=== PATIENT | female | born 1995 | race Caucasian/White ===

== ENCOUNTER 2017-04-05 13:44 | Emergency (ER) | payer BC ==
[~2017-04-05] VITALS: Ht 162.6 cm; Wt 103.0 kg
[2017-04-05 13:48] VITALS: Ht 162.6 cm; Wt 103.0 kg
[2017-04-05] MEDS ORDERED: MAGN296S40 PO (14:22)
[2017-04-05] MEDS ORDERED: POLY17PO6 PO (14:23)
--- NOTE | 2017-04-05 14:32 | ERD ---
ER Documentation Chief Complaint Date/Time DATE: 04/05/17 TIME: 14:26 Chief Complaint pt bib family with c/o constipation, she has tried many things HPI Patient is a 21-year-old female with past medical history who presents to the emergency department for constipation. Patient states she has been unable to pass a good bowel movement for the last week. She reports thin caliber stools. Patient states that she was seen in outside hospital proximally 1 week ago and at that time given numerous prescriptions. Patient reports getting a prescription for Colace as well as mag citrate. Patient reports drinking 3 glasses of water per day. She does report straining. Patient does report passing gas. Patient denies any fevers, chills, nausea, vomiting, vaginal bleeding, rectal bleeding, rectal pain. Last menstrual period month and a half ago, irregular periods noted. She is currently being treated for urinary tract infection is taking Keflex. Patient denies taking any opioids. Patient brings in all medication she has tried for constipation. Upon reviewing the patient's prescriptions with her, it was noted that patient has only been taking 10 cc of mag citrate per day. ROS All systems reviewed and are negative except as per history of present illness. Medications Home Meds Active Scripts Polyethylene Glycol* (Miralax*) 17 Gm Powd.pack, 17 GM PO DAILY, #7 Prov:ASHOK LEIVA PA-C 04/05/17 Magnesium Citrate* (Magnesium Citrate*) 296 Ml Solution, 296 ML PO ONCE, #1 BOTTLE Prov:ASHOK LEIVA PA-C 04/05/17 Allergies Allergies: Coded Allergies: No Known Allergy (Unverified , 04/05/17) Physical Exam Vitals Vital Signs Date Time Temp Pulse Resp B/P Pulse Ox O2 Delivery O2 Flow Rate FiO2 04/05/17 13:48 98.3 68 18 132/78 98 Physical Exam GENERAL: Well-developed, well-nourished female. Appears in no acute distress. HEAD: Normocephalic, atraumatic. EYES: Pupils are equally reactive bilaterally. EOMs grossly intact. No conjunctival erythema. ENT: Moist mucous membranes. No uvula deviation. No kissing tonsils. NECK: Supple. No meningismus. Normal range of motion of the neck. LUNG: Clear to auscultation bilaterally. No rhonchi, wheezing, rales or coarse breath sounds. HEART: Regular rate and rhythm. No murmurs, rubs or gallops. ABDOMEN: Soft and nondistended. Slightly tender in all 4 quadrants.. Positive bowel sounds in all four quadrants. No rebound tenderness, no guarding. (-) McBurney's point tenderness. No CVA tenderness. BACK: No midline tenderness. EXTREMITIES: Equal pulses bilaterally. No peripheral clubbing, cyanosis or edema. No unilateral leg swelling. NEUROLOGIC: Alert and oriented. Moving all four extremities without any difficulty. Normal speech. Steady gait. SKIN: Normal color. Warm and dry. No rashes or lesions. Procedures/MDM MEDICAL DECISION MAKING: This is a 21-year-old female who presents with constipation 1 week. Vital signs were reviewed. Patient is afebrile. She was not hypoxic. Upon reviewing the patient's medications with her, it was noted that patient is only taking 10 cc of mag citrate per day. I explained to the patient in detail per the instructions on the mag citrate bottle, that she should be taking approximately 10 cc of mag citrate out once. At this time the patient's presentation is most consistent with chronic constipation. Patient will be given a new prescription for mag citrate to take at this time.. Patient advised to follow the instructions on the bottle as prescribed. Patient will also be given a prescription for MiraLAX to take after she has a bowel movement. Patient advised to increase H2O intake. Patient advised to eat foods high in fiber including prunes, apples, grapes. I have a much lower clinical concern for bowel obstruction, bowel perforation, appendicitis, diverticulitis diverticulosis, opioid induced constipation. Patient was given a referral to GI specialist. Patient advised to follow-up with a GI specialist for ongoing history of constipation. Patient may need colonoscopy in an outpatient basis. PRESCRIPTIONS: Mag citrate, MiraLAX Patient advised to continue Keflex as prescribed for her urinary tract infection. Patient advised to follow-up with her primary care physician for resolution of urinary tract infection. DISCHARGE: At this time, patient is stable for discharge and outpatient management. I have instructed the patient to follow-up with his/her primary care physician in 1-2 days. I have instructed the patient to promptly return to the ER at any time for any new or worsening symptoms including increased pain, nausea, vomiting, diarrhea, fever, weakness or LOC. The patient and/or family expressed understanding of and agreement with this plan. All questions were answered. Home care instructions were provided. Departure Diagnosis: Primary Impression: Constipation Constipation type: unspecified constipation type Qualified Code: K59.00 - Constipation, unspecified constipation type Condition: Stable Patient Instructions: Constipation (Adult) Referrals: CRISTY SOLIMAN MD,LUIS EDWARD MD,SHYAM MCLAUGHLIN,ANDRES Marroquin MD [facility] YOU HAVE RECEIVED A MEDICAL SCREENING EXAM AND THE RESULTS INDICATE THAT YOU DO NOT HAVE A CONDITION THAT REQUIRES URGENT TREATMENT IN THE EMERGENCY DEPARTMENT. FURTHER EVALUATION AND TREATMENT OF YOUR CONDITION CAN WAIT UNTIL YOU ARE SEEN IN YOUR DOCTORS OFFICE WITHIN THE NEXT 1-2 DAYS. IT IS YOUR RESPONSIBILITY TO MAKE AN APPOINTMENT FOR FOLOW-UP CARE. IF YOU HAVE A PRIMARY DOCTOR --you should call your primary doctor and schedule an appointment IF YOU DO NOT HAVE A PRIMARY DOCTOR YOU CAN CALL OUR PHYSICIAN REFERRAL HOTLINE AT IF YOU CAN NOT AFFORD TO SEE A PHYSICIAN YOU CAN CHOSE FROM THE FOLLOWING [facility] [address] [facility] [address] [facility]. [facility] [address] [facility] [address] [facility] [address] [facility]. [facility] [address] [facility]. [facility] YOU HAVE RECEIVED A MEDICAL SCREENING EXAM AND THE RESULTS INDICATE THAT YOU DO NOT HAVE A CONDITION THAT REQUIRES URGENT TREATMENT IN THE EMERGENCY DEPARTMENT. FURTHER EVALUATION AND TREATMENT OF YOUR CONDITION CAN WAIT UNTIL YOU ARE SEEN IN YOUR DOCTORS OFFICE WITHIN THE NEXT 1-2 DAYS. IT IS YOUR RESPONSIBILITY TO MAKE AN APPOINTMENT FOR FOLOW-UP CARE. IF YOU HAVE A PRIMARY DOCTOR --you should call your primary doctor and schedule and appointment IF YOU DO NOT HAVE A PRIMARY DOCTOR YOU CAN CALL OUR PHYSICIAN REFERRAL HOTLINE AT . IF YOU CAN NOT AFFORD TO SEE A PHYSICIAN YOU CAN CHOSE FROM THE FOLLOWING [facility] INSTITUTIONS: [facility] [address] [place] [address] [facility] [address] [place] [address] [facility] [address] [place] [address] Additional Instructions: Call your primary care doctor TOMORROW for an appointment during the next 1-2 days.See the doctor sooner or return here if your condition worsens before your appointment time. Follow up with GI specialist for ongoing constipation. Patient may need colonoscopy on outpatient basis. See referral list. Take Mag citrate tonight. Take as prescribed. See instructions. ASHOK LEIVA PA-C April 05, 2017 14:32
== END 2017-04-05 14:32 | disposition home or self-care (01) ==
LOC: FTE 13:44 → E/R 14:32
DX: K59.00 Constipation, unspecified (principal)
CPT/HCPCS: 99283